=== PATIENT | female | born 1955 | race Caucasian/White ===

== ENCOUNTER 2016-11-28 06:58 | Day surgery (SDC) | payer OTHER ==
[~2016-11-28] VITALS: Ht 162.6 cm; Wt 88.0 kg
[2016-11-28] VITALS (9 sets, daily range): BP systolic 130–150; BP diastolic 78–97; PULSE 64–82; RESP 10–17; O2SAT 92–97
[~2016-11-28 06:58] MED LIST: CHOL100045 PO; CYCL5TAB PO; CeFAZolin Inj 2 GM in IV Premix 1 EACH IV ONE; ESOM20CA39 PO; HYDR-4003 PO; Lactated Ringer's 1,000 ML IV ONE; MELO-253 PO; MULT-1018 PO; OMEP20CA11 PO
[2016-11-28] MEDS ORDERED: fentaNYL-PF 50 mCg/mL 2 mL Inj ONE (06:59)
[2016-11-28] MEDS ORDERED: Glycopyrrolate 0.2 mg/mL 5 mL Inj ONE (06:59)
[2016-11-28] MEDS ORDERED: Rocuronium 10 mg/mL 5 mL Inj ONE (06:59)
[2016-11-28] MEDS ORDERED: Dexamethasone 4 mg/mL Inj ONE (06:59)
[2016-11-28] MEDS ORDERED: Ondansetron 2 mg/mL 2 mL Inj ONE (06:59)
[2016-11-28] MEDS ORDERED: Lidocaine PF 1% 30 mL Inj ONE (06:59)
[2016-11-28] MEDS ORDERED: Phenylephrine/NS 100 mCg/mL 10 mL Syringe IVPUSH ONE (06:59)
[2016-11-28] MEDS ORDERED: Propofol 10,000 mCg/mL 20 mL Inj ONE (06:59)
[2016-11-28] MEDS ORDERED: Bupivacaine 0.5% 50 mL Inj ONE (06:59)
[2016-11-28] MEDS ORDERED: Neostigmine 1 mg/mL 5 mL Inj ONE (06:59)
[2016-11-28] MEDS ORDERED: DIPH25CA6 PO (07:14)
[2016-11-28] MEDS ORDERED: oxyCODONE-Acetamin 5-325 mg Tablet PO PRN (08:50)
--- NOTE | 2016-11-28 10:33 | PCM.HPANE ---
Patient Data Date of Service: Nov 28, 2016 Surgeon Admitting Provider: Attending Provider:Glen Floyd DO Primary Care Physician:Siddhartha Palomino MD Other Provider:Marsha Joe Anesthesia Reason for Visit Left Shoulder Disorder Of Synovium And Tendon Ht/WT & BMI Height (Feet): 5 Height (Inches): 4 Weight (Kilograms): 88 Body Mass Index 33.00 Allergies Coded Allergies: Gajwefq-Nhz-Vri Reductase Inhibitor (Verified Allergy, Unknown, UNKNOWN, ) Past Anesthesia History Anesthesia History: Denies:: Fam Anesthesia Reaction, Fam Malignant Hypertherm Diabetes History Hx Diabetes?: No MRSA MRSA: No Medications Home Meds Incl Beta Apolinar: No Reported Medications diphenhydrAMINE HCl (Benadryl)25 Mg Cejsyif14 Mg PO Q4 PRN For Itching Ref 0 11/28/16 Cyclobenzaprine 5 Mg Tablet5 Mg PO BID PRN Spasm 11/25/16 Cholecalciferol (Vitamin D3) (Vitamin D)1,000 Unit Capsule1,000 Unit PO DAILY # 1 BOTTLE Ref 0 11/25/16 Omeprazole 20 Mg Capsule.dr20 Mg PO DAILY Ref 0 11/25/16 Multivitamin (Multi Vitamin Daily)1 Each Tablet1 Each PO DAILY 30 Days Ref 0 11/25/16 Meloxicam 15 Mg Tgdqqo31 Mg PO DAILY 30 Days Ref 0 11/25/16 Hydrocodone-Acetaminophen 5-325 mg 1 Each Tablet1 Tablet PO Q6H PRN For Pain Ref 0 11/25/16 Esomeprazole Magnesium 20 Mg Capsule.dr20 Mg PO DAILY 11/25/16 History History of ENT Problems?: No Hx of Heart Problems?: Yes Cardiovascular History: Positive for:: Hypertension Denies:: Heart Murmur Hx of Respiratory Problem?: No Respiratory History: Denies:: Use of C-PAP Machine Hx Neurologic Problems?: Yes Hx of GI Problems?: Yes Gastrointestinal History: Positive for:: Heartburn (controlled, denies DOS) Hx of Problems?: No Female Hx: Denies:: Currently (POST MENOPAUSE) Skin History: Denies:: History Skin Disorders? Pressure Ulcers Hx Musculoskeletal Problems?: Yes Musculoskeletal History: Positive for:: Musculoskeletal Trauma (INTERNAL DERANGEMENT LT SHOULDER=CURRENT PROBLEM) Hx of Psycho/Social Problems?: No Hx Surgeries?: No Hx Any Other Health Problems?: No Other History: Denies:: Cancer Endocrine Disease Hospitalization Thyroid Disease History Blood Transfusions: Denies:: Blood Transfusions Hx Diabetes: No Have You Smoked inLast 12 mo: No Stop/Bang Treated for Sleep Apnea?: No Do You Have a CPAP Machine?: No S-Snoring: Do You Snore Loudly: No T-Tired: feel tired, fatigued: Yes O-Obsered: Observed not breath: No P-Blood Pressure: treated: No B- Body Mass Index > 35 kg/m2: No A- Age over 50: Yes N- Neck Large Circumference: No G- Gender Male: No LUCITA Total Score: 2 LUCITA Risk Assessment: Low Risk, <3 Yes Risk Assessment Category Category 1A: Patient has history of documented sleep apnea, and HAS NOT received any narcotic, sedative or anesthesia administration during this stay. Category 1B: Patient has history of documented sleep apnea, and HAS received any narcotic , sedative or anesthesia administration during this stay Category 2: Patient has SUSPECTED Obstructive Sleep Apnea, and HAS received any narcotic , sedative or anesthesia administration during this stay. Category 3: Patient has SUSPECTED Obstructive Sleep Apnea and HAS NOT received narcotic, sedative or anesthesia administration during this stay. Category 4: Outpatient in Procedural Areas with known sleep apnea or who screen positive for High Risk via the STOP/BANG questionnaire. Exam Exam Vital Signs Vital Signs Date Time Temp Pulse Resp B/P Pulse Ox O2 Delivery O2 Flow Rate FiO2 11/28/16 07:20 35.7 80 17 130/81 94 Room Air General Appearance: Alert, Oriented X3, Cooperative, No Acute Distress HEENT/AIRWAY: MP 3, Neck Movement (Normal ROM) Lungs: Clear to Auscultation, Normal Air Movement Heart: Exam Unremarkable, Normal S1, Normal S2 Meds/Labs/Diagnostics Admission Meds Current Medications Lactated Ringer's (Lr) 1,000 ml @ 120 mls/hr Q8H20M ONCE IV Last administered on 11/28/16t 07:07; Start 11/28/16 at 05:00; Stop 11/28/16 at 13:19 Plan Impression Patient chart reviewed, patient interviewed and anesthestic plan with risks, benefits, and alternatives discussed, and informed consent obtained. NPO Status: 199911/27/16 ASA Physical Status: ASA2 Mod Systemic Disease Anesthetic Plan: GA, Regional Block (Supraclavicular block per surgeon and patient request for postop pain control) Bene/Risks/Altern/Consents: Yes HP Complete Prior to Induction: Yes Tr Murray DO Nov 28, 2016 10:33
[2016-11-28] MEDS ORDERED: Lactated Ringer's 500 ML IV PRN (10:34)
[2016-11-28] MEDS ORDERED: Lactated Ringer's 1,000 ML IV SCH (10:34)
[2016-11-28] MEDS ORDERED: EPHEDrine Sulfate 50 mg/mL Inj IVPUSH PRN (10:35)
[2016-11-28] MEDS ORDERED: Atropine 0.4 mg/mL Inj IVPUSH PRN (10:35)
[2016-11-28] MEDS ORDERED: fentaNYL-PF 50 mCg/mL 2 mL Inj IVPUSH PRN (10:35)
[2016-11-28] MEDS ORDERED: Labetalol 5 mg/mL 4 mL Inj IV PRN (10:35)
[2016-11-28] MEDS ORDERED: Dexamethasone 4 mg/mL Inj IVPUSH PRN (10:35)
[2016-11-28] MEDS ORDERED: HYDROmorphone 1 mg/mL Inj IVPUSH PRN (10:35)
[2016-11-28] MEDS ORDERED: MetoCLOpramide 5 mg/mL 2 mL Inj IVPUSH PRN (10:35)
[2016-11-28] MEDS ORDERED: Ondansetron 2 mg/mL 2 mL Inj IVPUSH PRN (10:35)
[2016-11-28] MEDS ORDERED: Phenylephrine 10,000 mCg/mL Inj IVPUSH PRN (10:35)
--- NOTE | 2016-11-28 11:11 | PCM.ANEP1 ---
Post Anesthesia Phase 1 PACU Phase 1 Assessment Date of Service: Nov 28, 2016 Vital Signs Vital Signs Date Time Temp Pulse Resp B/P Pulse Ox O2 Delivery O2 Flow Rate FiO2 11/28/16 11:02 36.2 82 16 150/97 97 Simple Mask 8 11/28/16 07:20 35.7 80 17 130/81 94 Room Air Anesthetic Administered: GA, Regional Block (Supraclavicular block) Level of Alertness: Awake, talking ALVES's with Equal Strength: No Pain: No Nausea or Vomiting: No Oxygen Delivery: Simple Mask (4l ) Lungs: Clear to Auscultation, Normal Air Movement Dermatome Level: Full Sensation (Anesthetic, flaccid LUE c/w supraclavicular) Tr Murray DO Nov 28, 2016 11:11
--- NOTE | 2016-11-28 12:04 | PCM.ANEP2 ---
Post Anesthesia Evaluation ASA/CMS Post Anesthesia Date of Service: Nov 28, 2016 VS in Patient's Normal Range?: Yes Resp Stable; Airway Patent?: Yes CV Function & Hydration Stable: Yes Mental Status Recovered?: Yes Pain control Satisfactory?: Yes N/V Control Satisfactory?: Yes Tr Murray DO Nov 28, 2016 12:04
--- NOTE | 2016-11-29 08:13 | OP ---
[address] [address] OPERATIVE REPORT PATIENT: LEONEL AYALA : 1955 MR#: [id number] ADMIT: 11/28/2016 JOB ID: [id number] DATE OF SURGERY: 11/28/2016 PREOPERATIVE DIAGNOSIS(ES): 1. Left shoulder rotator cuff tendinopathy. 2. Left shoulder impingement syndrome. 3. Left shoulder acromioclavicular arthritis. 4. Left shoulder bicipital tendinopathy. POSTOPERATIVE DIAGNOSIS(ES): 1. Left shoulder rotator cuff tendinopathy. 2. Left shoulder impingement syndrome. 3. Left shoulder acromioclavicular arthritis. 4. Type 1 SLAP tear. PROCEDURES: 1. Left shoulder arthroscopy with rotator cuff debridement and bursectomy. 2. Left shoulder arthroscopy with debridement of labrum. 3. Left shoulder arthroscopy with subacromial decompression and acromioplasty. 4. Left shoulder arthroscopy and distal clavicle excision. SURGEON: Glen Floyd DO EHS MANAGER: Lon Wise PA-C The assistance of Lon Wise PA-C, was necessary for help with manipulation of the intra-articular equipment as well as the camera, and for primary closure at the conclusion of the case. BRIEF HISTORY: The patient is a 60-year-old female with a longstanding history of left shoulder pain. She failed conservative treatment with therapy, anti-inflammatories as well as corticosteroid injection. Her symptoms are only worsening. An MRI was obtained, demonstrated rotator cuff tendinopathy as well as acromioclavicular arthritis. Clinically, she also demonstrated signs of impingement syndrome and bicipital tendinopathy. I discussed with the patient the risks, benefits, and indications to proceed with an arthroscopy of the left shoulder with subacromial decompression, distal clavicle excision, possible rotator cuff debridement versus repair, and possible open biceps tenodesis. She understood the risks include, but not limited to, neurovascular injury, tendon injury, infection, failure of fixation, stiffness, persistent pain which may require further intervention. The patient had all questions answered. Consent was signed and placed in the chart. PROCEDURE IN DETAIL: The patient was brought to the operative suite and placed supine on the operating room table. Surgical time-out was performed. Everyone in the room was in agreement. After appropriate anesthesia was obtained, the patient was placed into the beach chair position and the left shoulder was then prepped and draped in a sterile fashion. The left arm was then placed into an arthroscopic arm rodriguez. A camera was introduced in the typical fashion through a posterior viewing portal. On gross observation, there was no evidence of chondromalacia to the humeral head or to the glenoid. There was some fraying circumferentially of the glenoid, including at the biceps anchor, but the biceps in the superior labrum appeared to be intact. The biceps was free of any tendinopathy as well as the underlying surface of the rotator cuff which demonstrated no evidence of any tears. A significant amount of hypertrophic synovium was present within the joint. An anterior working portal was then developed in the typical fashion, first utilizing an 18-gauge spinal needle to determine the appropriate position of the working portal. The working portal was then created. A shaver introduced to perform an extensive synovectomy as well as debridement of the labrum including the superior aspect of the labrum which demonstrated a type 1 labrum. A probe further was utilized to ensure that the labrum did not lift off of the superior glenoid. The undersurface of the rotator cuff again was examined with the probe and did not demonstrate any signs of a tear. The camera was then brought in subacromial space. There was extensive hypertrophic bursa. A lateral working portal was then created. An extensive bursectomy was performed. After a complete bursectomy was performed, the bursal surface of the rotator cuff was identified and demonstrated signs of only some tendinopathy which was debrided with the shaver. No tears were identified. The entire rotator cuff tendon was probed. A surface electrocautery was then used to delineate the undersurface of the acromion. An anterior hook of the acromion was identified. This was followed by utilization of a bur to perform an acromioplasty. Next, attention was turned towards the distal clavicle. There was significant arthritis noted within the acromioclavicular joint and, through an anterior portal utilizing the bur, a distal clavicle excision measuring approximately 8-10 mm in width was performed. The arthroscopic equipment was then removed from the joint. The portal was closed with 4-0 nylon in a simple interrupted fashion. The patient was then placed into a bulky soft dressing and into a sling. ESTIMATED BLOOD LOSS: 25 cc. COMPLICATIONS: None. DISPOSITION: The patient tolerated the procedure well. Anesthesia was reversed. The patient was transferred to the PACU for recovery. POSTOPERATIVE PLAN: The patient will follow up in the office in two weeks. We will remove the patient's sling at that time and have her start working with physical therapy for range of motion and gradual strengthening exercises. PRAFUL
== END 2016-11-28 23:59 | disposition home or self-care (01) ==
LOC: SAS 06:58
PROVIDERS: ATTEND Orthopaedic Surgery
DX: M19.012 Primary osteoarthritis, left shoulder (principal)
CPT/HCPCS: 29823; 29824; 29826; 76942; C1713; J0690; J1100; J2250; J2370; J2405; J2710; J3010; J7120